=== PATIENT | male | born 1970 ===

== ENCOUNTER 2016-11-10 20:59 | Emergency (ER) | payer OTHER ==
[2016-11-10 21:44] LABS: ABSOLUTE NEUTROPHIL COUNT 7.4 K/mm3 (1.8-7.7); BASO # 0.1 K/mm3 (0.0-0.2); BASO % 0.4 % (0.2-1.0); EOS # 0.4 (0.0-0.5); EOS % 3.6 % (0.9-2.9); HEMATOCRIT 39.3 % (32.0-52.0); HEMOGLOBIN 12.9 gm/l (14.0-18.0); IMM NEUT # 0.1 K/mm3 (0-0.2); IMM NEUT% 0.9 % (0-1); LYMPH # 2.3 (1.0-4.8); MEAN CELL VOLUME 84.3 fl (80.0-94.0); MEAN CORPUSCULAR HEMOGLOBIN 27.7 pg (27.0-31.0); MEAN CORPUSCULAR HGB CONC 32.8 g/dl (33.0-37.0); MEAN PLATELET VOLUME 10.3 fl (7.4-10.4); MONO # 0.9 (0.0-0.8); MONO % 7.9 % (4-12); NEUT % 66.2 % (43-75); PLATELET COUNT 266 K/mm3 (130-400); RED CELL DISTRIBUTION WIDTH 12.9 % (11.5-14.5)
[2016-11-10 22:03] LABS: CALCIUM 9.3 mg/dL (8.6-10.3)
[2016-11-10] MEDS ORDERED: AMOX 875 MG/CLAV 125 MG 1 EACH TABLET ONE (22:13)
[2016-11-10] MEDS ORDERED: SULFAMETHOXAZOLE 800 MG/TRIMETHOPRIM 160 MG TABLET ONE (22:13)
[2016-11-10] MEDS ORDERED: HYDROCODONE/ACETAMINOPHEN 5/325MG TABLET ONE (22:17)
--- NOTE | 2016-11-11 07:23 | RAD ---
LEFT FOOT 3 VIEWS HISTORY: Left great toe infection, fever. COMPARISONS: None. TECHNIQUE: Frontal, lateral, and oblique views of the left foot. ALIGNMENT: Grossly unremarkable. FRACTURE: Corticated fragment seen at Achilles tendon insertion site compatible with remote injury at site of enthesophyte formation. No destructive lesion or periosteal reaction noted. SOFT TISSUES: Diffuse soft tissue swelling of the medial foot and first toe. RADIOOPAQUE FOREIGN BODY: None. IMPRESSION: 1. Diffuse soft tissue swelling the first toe and medial foot compatible with cellulitis, the current study does not exclude abscess formation. 2. No destructive osseous lesion. 3. Remote injury in association with a posterior calcaneal enthesophyte.
== END 2016-11-10 22:31 | disposition home or self-care (01) ==
LOC: ED 20:59
DX: L02.612 Cutaneous abscess of left foot (principal); E11.9 Type 2 diabetes mellitus without complications; Z79.84 Long term (current) use of oral hypoglycemic drugs
CPT/HCPCS: 83605; 85025; 87070; 80048; 87186; 73630; 99284; 99283; A9270 ×3